=== PATIENT | male | born 1970 | race Caucasian/White ===

== ENCOUNTER 2018-07-15 09:03 | Emergency (ER) | payer MEDICARE ==
[~2018-07-15] VITALS: Ht 172.7 cm; Wt 90.7 kg
[~2018-07-15 09:03] MED LIST: HYDROCODONE BIT1 T11 PO; NEURONTIN300 MG PO; NOVOLIN 70100 UNIT/1 SC; PREDNISONE10 MG PO; ROBITUSSIN AC 110 ML PO; TOBREX OPHTH S2.5 ML OPH; VIBRAMYCIN100 MG PO; ZITHROMAX250 MG PO
[2018-07-15] MEDS ORDERED: FLONASE ALLERG9.9 ML NAS (09:38)
[2018-07-15] MEDS ORDERED: PREDNISONE20 M1 PO (09:38)
[2018-07-15] MEDS ORDERED: ALLEGRA ALLERG180 M2 PO (09:38)
[2018-07-15] MEDS ORDERED: Tobrex Ophth S2.5 ML OPH (09:38)
[2018-07-15] MEDS ORDERED: DOXYCYCLINE100 M3 PO (09:38)
[2018-10-02] MEDS ORDERED: CLARITIN10 MG PO (10:42)
[2018-10-02] MEDS ORDERED: DOXYCYCLINE100 M3 PO (10:42)
[2018-10-02] MEDS ORDERED: TOBRAMYCIN 5 ML5 M1 OPH (10:42)
[2018-10-02] MEDS ORDERED: FLONASE ALLERG9.9 ML NAS (10:42)
== END 2018-07-15 09:56 | disposition home or self-care (01) ==
LOC: ED 09:03
DX: J01.00 Acute maxillary sinusitis, unspecified (principal); H10.9 Unspecified conjunctivitis; Z88.1 Allergy status to other antibiotic agents; Z88.0 Allergy status to penicillin

== ENCOUNTER 2018-11-19 08:42 | Emergency (ER) | payer MEDICARE ==
[~2018-11-19] VITALS: Ht 172.7 cm; Wt 127.0 kg
[~2018-11-19 08:42] MED LIST changes: +ALLEGRA ALLERG180 M2 PO; +CLARITIN10 MG PO; +DOXYCYCLINE100 M3 PO; +FLONASE ALLERG9.9 ML NAS; +PREDNISONE20 M1 PO; +TOBRAMYCIN 5 ML5 M1 OPH; +Tobrex Ophth S2.5 ML OPH
[2018-11-19] MEDS ORDERED: PATANOL 0.1% 5 M5 ML OPH (09:16)
[2018-11-19] MEDS ORDERED: FLONASE ALLERG9.9 ML NAS (09:16)
== END 2018-11-19 09:18 | disposition home or self-care (01) ==
LOC: ED 08:42
DX: J30.9 Allergic rhinitis, unspecified (principal); H10.13 Acute atopic conjunctivitis, bilateral; Z88.1 Allergy status to other antibiotic agents; Z79.2 Long term (current) use of antibiotics; Z79.899 Other long term (current) drug therapy

== ENCOUNTER 2018-12-13 11:35 | Inpatient (IN) | payer MEDICARE, MEDICAID ==
[2018-12-13] VITALS (7 sets, daily range): BP systolic 126–185; BP diastolic 77–104
[~2018-12-13] VITALS: Ht 172.7 cm; Wt 90.7 kg
--- NOTE | ~2018-12-13 | EKG ---
[place], [place] ELECTROCARDIOGRAM REPORT NAME: SUKHJINDER RAMIREZ UNIT #: [id number] ROOM: 503 DOCTOR: LEONOR DRAFT REPORT BIRTHDATE: [birth year] [facility] Test Date: 2018-12-13 Test Time: 12:13:49 Pat Name: SUKHJINDER RAMIREZ Department: Room: [facility] Gender: M [employer] Supervisor: : 1970 Requested By: DEYA NEWTON Order Number: [id number] Reading MD: Feroz Phillips Measurements Intervals [place] Rate: 101 P: 45 [place]: 176 QRS: -56 QRSD: 89 T: 12 QT: 354 QTc: 459 Interpretive Statements Sinus tachycardia Abnormal R-wave progression, late transition Inferior infarct, old Baseline wander in lead(s) V4,V5 Electronically Signed On 12-14-2018 11:11:35 PST by Feroz Phillips CM:EKGRPT:ELECTROCARDIOGRAM REPORT [id number] DEYA GALVEZ DRAFT REPORT DEYA NEWTON MD
[~2018-12-13 11:35] MED LIST changes: +PATANOL 0.1% 5 M5 ML OPH
[2018-12-13 12:10] LABS: BASO # 0.1 10*3/uL (0.0-0.1); BASO % 0.6 % (0.0-1.0); EOS # 0.2 10*3/uL (0.0-0.4); EOS % 1.8 % (1.0-4.0); HEMATOCRIT 46.8 % (42.0-52.0); HEMOGLOBIN 16.2 g/dl (14.0-18.0); LYMPH # 1.8 10*3/uL (1.3-4.4); LYMPH % 19.4 % (27.0-41.0); MEAN CELL VOLUME 88.1 fl (80.0-94.0); MEAN CORPUSCULAR HGB 30.5 pg (27.0-31.0); MEAN CORPUSCULAR HGB CONC 34.6 g/dl (33.0-37.0); MONO # 0.8 10*3/uL (0.1-1.0); MONO % 7.9 % (3.0-9.0); NEUT # 6.6 10*3/uL (2.3-7.9); NEUT % 69.7 % (47.0-73.0); PLATELET COUNT AUTOMATED 293 10*3/uL (130-400); RED BLOOD COUNT 5.31 10*6/uL (4.50-5.90); RED CELL DISTRI WIDTH 13.1 % (0-14.5); WHITE BLOOD COUNT 9.5 10*3/uL (4.8-10.8)
[2018-12-13 12:26] LABS: ALBUMIN 3.7 gm/dl (3.1-4.5); ALKALINE PHOSPHATASE 130 U/L (45-117); BUN 11 mg/dl (7-24); CHLORIDE 102 mmol/L (98-107); CREATININE 0.88 mg/dL (0.70-1.30); POTASSIUM 4.1 mmol/L (3.5-5.1); SGOT/AST 22 IU/L (3-35); SGPT/ALT 34 U/L (12-78); SODIUM 136 mmol/L (136-145); TOTAL PROTEIN 7.3 gm/dL (6.4-8.2)
[2018-12-13 12:33] LABS: TROPONIN I < 0.015 ng/ml (<0.045)
--- NOTE | 2018-12-13 13:01 | NUR ---
patient unable to coplete visual acuity at this time.
--- NOTE | 2018-12-13 13:33 | NUR ---
A 48, admitted to , under the services of EVARISTO Arguello DO with a diagnosis of HTN URGENCY HYPERGLYCEMIA. Chief complaint is HT URGENCY AND HYPERGLYCEMIA. Patient arrived via bed from ER. Monitor applied. Initial assessment completed. Vital signs taken and recorded. EVARISTO ARGUELLO DO notified of admission to the unit. Orders received. See assessment for past medical history, medications and allergies. Patient and/or family oriented to unit. [facility] visitation policy reviewed. Clothing/patient valuable form completed. NAV PATEL
[2018-12-13] MEDS ORDERED: ZYRTEC10 M3 PO (13:37)
[2018-12-13 15:46] LABS: BILIRUBIN NEGATIVE (NEGATIVE); BLOOD 2+ (NEGATIVE); CLARITY CLEAR (CLEAR); COLOR YELLOW (YELLOW); GLUCOSE 3+ (NEGATIVE); KETONE TRACE (NEGATIVE); LEUKO ESTERASE NEGATIVE (NEGATIVE); NITRITE NEGATIVE (NEGATIVE); PH 5.5 (5.0-9.0); UROBILINOGEN 0.2 E.U./dl (0.2-1.0)
[2018-12-13 15:52] LABS: BACTERIA 1+; WBC 0-2 wbc/hpf (0-5)
[2018-12-14] VITALS: BP 154/80
[2018-12-14 03:25] VITALS: BP 180/96
--- NOTE | 2018-12-14 03:31 | NUR ---
NOTIFIED OF BP 180/96 MANUALLY. DISCUSSED CURRENT MEDICATIONS ORDERED/GIVEN. NEW ORDER RECEIVED FOR 0.1 MG CLONIDINE NOW.
--- NOTE | 2018-12-14 03:46 | NUR ---
PO CLONIDINE GIVEN PER ORDER AT THIS TIME. WILL MONITOR EFFECTIVENESS. CALL LIGHT IN REACH.
[2018-12-14 05:30] VITALS: BP 123/59; BP 124/70
--- NOTE | 2018-12-14 05:43 | NUR ---
PO TYLENOL ADMINISTERED AT THIS TIME PER PRN ORDER FOR C/O HEADACHE RATED 7/10. EARLIER CLONIDINE EFFECTIVE. BP NOW 124/7O MANUALLY. WILL CONTINUE TO MONITOR. CALL LIGHT LEFT IN REACH.
[2018-12-14 06:45] LABS: BASO % 0.5 % (0.0-1.0); EOS # 0.2 10*3/uL (0.0-0.4); EOS % 1.9 % (1.0-4.0); HEMATOCRIT 42.8 % (42.0-52.0); HEMOGLOBIN 14.5 g/dl (14.0-18.0); LYMPH # 1.4 10*3/uL (1.3-4.4); LYMPH % 15.9 % (27.0-41.0); MEAN CELL VOLUME 91.1 fl (80.0-94.0); MEAN CORPUSCULAR HGB 30.9 pg (27.0-31.0); MEAN CORPUSCULAR HGB CONC 33.9 g/dl (33.0-37.0); MEAN PLATELET VOLUME 10.5 fl (9.6-12.3); MONO # 0.8 10*3/uL (0.1-1.0); MONO % 9.4 % (3.0-9.0); NEUT # 6.3 10*3/uL (2.3-7.9); NEUT % 71.4 % (47.0-73.0); PLATELET COUNT AUTOMATED 281 10*3/uL (130-400); RED CELL DISTRI WIDTH 13.2 % (0-14.5); WHITE BLOOD COUNT 8.8 10*3/uL (4.8-10.8)
[2018-12-14 07:23] LABS: ALBUMIN 3.1 gm/dl (3.1-4.5); BUN 18 mg/dl (7-24); CHLORIDE 103 mmol/L (98-107); CHOLESTEROL 231 mg/dL (<200); POTASSIUM 3.9 mmol/L (3.5-5.1); SODIUM 137 mmol/L (136-145)
[2018-12-14 07:31] LABS: VITAMIN D, 25-HYDROXY 10.7 ng/mL (30-100)
[2018-12-14 07:34] LABS: ALKALINE PHOSPHATASE 79 U/L (45-117); CREATININE 0.79 mg/dL (0.70-1.30); FREE T4 1.19 ng/dl (0.76-1.46); HDL CHOLESTEROL 29 mg/dl (40-60); LDL CHOLESTEROL 156 mg/dL (9-159); PHOSPHOROUS 3.6 mg/dL (2.5-4.9); SGOT/AST 15 IU/L (3-35); SGPT/ALT 28 U/L (12-78); TOTAL PROTEIN 6.2 gm/dL (6.4-8.2); TRIGLYCERIDES 231 mg/dl (<150); VLDL CHOLESTEROL 46 mg/dL (6-40)
[2018-12-14 08:00] VITALS: BP 150/84
--- NOTE | 2018-12-14 10:30 | NUR ---
Occupational therapy orders received and chart reviewed. Per discussion with patient, he has been independently performing functional transfers, mobility, and ADLs. Patient stated he has "some dizziness" due to his "sugar." Patient stated he does not need OT treatment while at [facility] and that he is "being discharged today." Patient orders to be discharged. Thank you for the referral. Belle Clifford, OTR/L
[2018-12-14 12:00] VITALS: BP 138/79
[2018-12-14] MEDS ORDERED: Humalog SQ (13:18)
[2018-12-14] MEDS ORDERED: FLONASE ALLERG9.9 ML NAS (13:18)
[2018-12-14] MEDS ORDERED: LISINOPRIL10 M1 PO (13:18)
[2018-12-14] MEDS ORDERED: EAC MC (13:18)
[2018-12-14] MEDS ORDERED: LANTUS SOL100 UNIT/1 SQ (13:18)
[2018-12-14] MEDS ORDERED: VITAMIN D5000 UNI1 PO (13:18)
[2018-12-14] MEDS ORDERED: AMLODIPINE BESYL5 MG PO (13:18)
[2018-12-14] MEDS ORDERED: ATORVASTATIN CA80 M1 PO (13:18)
[2018-12-14] MEDS ORDERED: GLUCTESTSTRIP (13:18)
--- NOTE | 2018-12-14 13:31 | NUR ---
Guest Relations Coordinator in to talk to patient. Patient states lives at HOME with MOMTHER. There are FEW steps in the home. Physician: NONE AT THIS TIME, WANTS TO FOLLOW UP WITH [facility]: [facility] [place] [facility]: NONE Patient's level of ADLs: INDEPENDENT Patient has working utilities: YES DME: NONE Follow-up physician's appointment after d/c: WILL BE MADE BY HOSPITALIST NURSE DIRECTOR ON DISCHARGE Does patient want to access PORTAL?: NO Discharge plan PT LIVES AT HOME WITH HIS MOTHER AND IS INDEPENDENT IN HIS CARE. STATES HIS PLAN IS TO RETURN HOME WITH HIS MOTHER ON DISCHARGE. STATES HE HAS STEPS IN HOUSE BUT THERE IS A LIFT SO HE DOES NOT HAVE TO USE THEM. WILL CONTINUE TO FOLLOW. WILL HAVE A RIDE HOME ON DISCHARGE. . SELIN RIGGINS
--- NOTE | 2018-12-14 15:11 | NUR ---
Nutritional Support Services Note: Pt declined diet instruction. States he knows what he should do. Encouraged better compliance to diet and medication. Encouraged healthy eating. Will follow as needed. Fay Sanchez Rdn Ld
[2018-12-14 16:00] VITALS: BP 142/82
--- NOTE | 2018-12-14 17:50 | NUR ---
Discharge instructions reviewed with patient/family. Patient receptive and verbalizes understanding. Follow-up care arranged. Written instructions given to patient/family. GIOVANNI MATA
== END 2018-12-14 17:50 | disposition home or self-care (01) | DRG 305 ==
LOC: ED 11:35 → EDHOLD 12:50 → 5E 12:50
PROVIDERS: Emergency Medicine; Student in an Organized Health Care Education/Training Program; ADMIT Emergency Medicine
DX: I16.1 Hypertensive emergency (principal); E11.65 Type 2 diabetes mellitus with hyperglycemia; D72.810 Lymphocytopenia; J34.89 Other specified disorders of nose and nasal sinuses; E11.40 Type 2 diabetes mellitus with diabetic neuropathy, unspecified; I95.1 Orthostatic hypotension; J30.2 Other seasonal allergic rhinitis; H53.8 Other visual disturbances; Z79.4 Long term (current) use of insulin; Z88.1 Allergy status to other antibiotic agents; Z83.3 Family history of diabetes mellitus; Z82.49 Family history of ischemic heart disease and other diseases of the circulatory system; Z82.3 Family history of stroke; Z79.899 Other long term (current) drug therapy

== ENCOUNTER → 2018-12-18 | Outpatient (CLI) | payer MEDICARE, MEDICAID ==
[~2018-12-18] MED LIST changes: +AMLODIPINE BESYL5 MG PO; +ATORVASTATIN CA80 M1 PO; +EAC MC; +GLUCTESTSTRIP; +Humalog SQ; +LANTUS SOL100 UNIT/1 SQ; +LISINOPRIL10 M1 PO; +VITAMIN D5000 UNI1 PO; +ZYRTEC10 M3 PO
== END | disposition home or self-care (01) ==
LOC: RESCLI 00:49
DX: E11.41 Type 2 diabetes mellitus with diabetic mononeuropathy (principal); E78.5 Hyperlipidemia, unspecified; I10 Essential (primary) hypertension; E55.9 Vitamin D deficiency, unspecified; Z79.899 Other long term (current) drug therapy; Z88.0 Allergy status to penicillin

== ENCOUNTER → 2019-01-19 | Outpatient (CLI) | payer MEDICARE, MEDICAID | LOC: RESCLI 00:50 | DX: E13.9 Other specified diabetes mellitus without complications (principal); I10 Essential (primary) hypertension; E78.5 Hyperlipidemia, unspecified; E55.9 Vitamin D deficiency, unspecified; B49 Unspecified mycosis; Z79.899 Other long term (current) drug therapy; Z79.4 Long term (current) use of insulin; Z90.89 Acquired absence of other organs; Z88.1 Allergy status to other antibiotic agents; Z88.8 Allergy status to other drugs, medicaments and biological substances ==

== ENCOUNTER → 2019-02-23 | Outpatient (CLI) | payer MEDICARE, MEDICAID ==
[2019-02-23 12:18] LABS: BASO # 0.1 10*3/uL (0.0-0.1); BASO % 0.5 % (0.0-1.0); EOS # 0.5 10*3/uL (0.0-0.4); EOS % 4.8 % (1.0-4.0); HEMATOCRIT 44.4 % (42.0-52.0); HEMOGLOBIN 14.6 g/dl (14.0-18.0); LYMPH % 18.5 % (27.0-41.0); MEAN CELL VOLUME 92.7 fl (80.0-94.0); MEAN CORPUSCULAR HGB 30.5 pg (27.0-31.0); MEAN CORPUSCULAR HGB CONC 32.9 g/dl (33.0-37.0); MEAN PLATELET VOLUME 9.8 fl (9.6-12.3); MONO # 0.9 10*3/uL (0.1-1.0); MONO % 8.2 % (3.0-9.0); NEUT # 7.4 10*3/uL (2.3-7.9); NEUT % 67.4 % (47.0-73.0); PLATELET COUNT AUTOMATED 322 10*3/uL (130-400); RED BLOOD COUNT 4.79 10*6/uL (4.50-5.90); RED CELL DISTRI WIDTH 13.3 % (0-14.5); WHITE BLOOD COUNT 10.9 10*3/uL (4.8-10.8)
[2019-02-23 12:55] LABS: CHLORIDE 111 mmol/L (98-107); SODIUM 144 mmol/L (136-145)
[2019-02-23 13:15] LABS: ALBUMIN 3.7 gm/dl (3.1-4.5); ALKALINE PHOSPHATASE 135 U/L (45-117); BUN 18 mg/dl (7-24); CHOLESTEROL 104 mg/dL (<200); CREATININE 0.74 mg/dL (0.70-1.30); HDL CHOLESTEROL 32 mg/dl (40-60); LDL CHOLESTEROL 59 mg/dL (9-159); SGOT/AST 27 IU/L (3-35); SGPT/ALT 48 U/L (12-78); TOTAL PROTEIN 7.2 gm/dL (6.4-8.2); TRIGLYCERIDES 64 mg/dl (<150); VLDL CHOLESTEROL 13 mg/dL (6-40)
== END | disposition home or self-care (01) ==
LOC: RESCLI 00:41
PROVIDERS: Internal Medicine
DX: E11.41 Type 2 diabetes mellitus with diabetic mononeuropathy (principal); I10 Essential (primary) hypertension; E78.5 Hyperlipidemia, unspecified; E55.9 Vitamin D deficiency, unspecified; Z79.899 Other long term (current) drug therapy; Z90.89 Acquired absence of other organs; Z88.1 Allergy status to other antibiotic agents; Z91.040 Latex allergy status

== ENCOUNTER → 2019-03-31 | Outpatient (CLI) | payer MEDICARE, MEDICAID | END | disposition home or self-care (01) | LOC: RESCLI 00:54 | DX: E11.41 Type 2 diabetes mellitus with diabetic mononeuropathy (principal); I10 Essential (primary) hypertension; E78.5 Hyperlipidemia, unspecified; E55.9 Vitamin D deficiency, unspecified; J01.01 Acute recurrent maxillary sinusitis; R60.0 Localized edema; Z79.4 Long term (current) use of insulin; Z79.899 Other long term (current) drug therapy; Z90.89 Acquired absence of other organs; Z88.8 Allergy status to other drugs, medicaments and biological substances; Z88.1 Allergy status to other antibiotic agents ==

== ENCOUNTER 2019-07-08 07:43 | Emergency (ER) | payer MEDICARE, MEDICAID ==
[~2019-07-08] VITALS: Ht 172.7 cm; Wt 90.7 kg
[2019-07-08] MEDS ORDERED: ZITHROMAX250 MG PO ×2 (08:09→08:24)
[2019-07-08] MEDS ORDERED: BLEPH-10 5 ML5 ML OP ×2 (08:09→08:24)
== END 2019-07-08 08:12 | disposition home or self-care (01) ==
LOC: ED 07:43
DX: J32.9 Chronic sinusitis, unspecified (principal); H10.9 Unspecified conjunctivitis; E11.9 Type 2 diabetes mellitus without complications; Z88.8 Allergy status to other drugs, medicaments and biological substances; Z79.899 Other long term (current) drug therapy; Z79.4 Long term (current) use of insulin

== ENCOUNTER → 2019-08-17 | Outpatient (CLI) | payer MEDICARE, MEDICAID ==
[~2019-08-17] MED LIST changes: +BLEPH-10 5 ML5 ML OP
== END | disposition home or self-care (01) ==
LOC: RESCLI 00:29
DX: E11.41 Type 2 diabetes mellitus with diabetic mononeuropathy (principal); E11.319 Type 2 diabetes mellitus with unspecified diabetic retinopathy without macular edema; I10 Essential (primary) hypertension; E78.5 Hyperlipidemia, unspecified; E55.9 Vitamin D deficiency, unspecified; E78.00 Pure hypercholesterolemia, unspecified; Z28.21 Immunization not carried out because of patient refusal; Z01.818 Encounter for other preprocedural examination; Z79.84 Long term (current) use of oral hypoglycemic drugs; Z79.899 Other long term (current) drug therapy; Z88.8 Allergy status to other drugs, medicaments and biological substances; Z91.040 Latex allergy status; Z98.890 Other specified postprocedural states

== ENCOUNTER → 2019-11-17 | Outpatient (CLI) | payer MEDICARE, MEDICAID | END | disposition home or self-care (01) | LOC: RESCLI 01:08 | PROVIDERS: ATTEND Internal Medicine | DX: G11.9 Hereditary ataxia, unspecified (principal); H54.0X33 Blindness right eye category 3, blindness left eye category 3; E11.42 Type 2 diabetes mellitus with diabetic polyneuropathy; I10 Essential (primary) hypertension; E78.5 Hyperlipidemia, unspecified; E55.9 Vitamin D deficiency, unspecified; G62.9 Polyneuropathy, unspecified; J30.2 Other seasonal allergic rhinitis; Z23 Encounter for immunization; Z86.69 Personal history of other diseases of the nervous system and sense organs; Z79.899 Other long term (current) drug therapy; Z98.890 Other specified postprocedural states; Z88.8 Allergy status to other drugs, medicaments and biological substances ==

== ENCOUNTER → 2020-02-29 | Outpatient (CLI) | payer MEDICARE, MEDICAID | END | disposition home or self-care (01) | LOC: RESCLI 03:03 | PROVIDERS: ATTEND Student in an Organized Health Care Education/Training Program | DX: G11.9 Hereditary ataxia, unspecified (principal); H54.0X33 Blindness right eye category 3, blindness left eye category 3; E11.42 Type 2 diabetes mellitus with diabetic polyneuropathy; I10 Essential (primary) hypertension; E78.5 Hyperlipidemia, unspecified; E55.9 Vitamin D deficiency, unspecified; G62.9 Polyneuropathy, unspecified; J30.2 Other seasonal allergic rhinitis; Z86.69 Personal history of other diseases of the nervous system and sense organs; Z79.4 Long term (current) use of insulin; Z79.899 Other long term (current) drug therapy; Z88.8 Allergy status to other drugs, medicaments and biological substances ==